=== PATIENT | male | born 1975 | race African-American/Black ===

== ENCOUNTER 2020-05-19 22:40 | Emergency (ER) | payer OTHER ==
[~2020-05-19] VITALS: Ht 177.8 cm; Wt 109.0 kg
[2020-05-19] MEDS ORDERED: NAP5EC MT (23:29)
[2020-05-19] MEDS ORDERED: KETOROLAC 30MG/ML VIAL IM ONE (23:30)
[2020-05-19 23:41] VITALS: BP 153/91
== END 2020-05-19 23:45 | disposition home or self-care (01) ==
LOC: ER 22:40
DX: S76.911A Strain of unspecified muscles, fascia and tendons at thigh level, right thigh, initial encounter (principal); W01.0XXA Fall on same level from slipping, tripping and stumbling without subsequent striking against object, initial encounter; Y93.89 Activity, other specified; Y92.89 Other specified places as the place of occurrence of the external cause
CPT/HCPCS: 96372; 99283; J1885

== ENCOUNTER 2020-07-02 00:01 | Emergency (ER) | payer OTHER ==
[~2020-07-02] VITALS: Ht 175.3 cm; Wt 108.0 kg
[~2020-07-02 00:01] MED LIST: NAP5EC MT
[2020-07-02 00:07] VITALS: BP 140/90
[2020-07-02] MEDS ORDERED: ERYT1OIN6 EACHEYE ×3 (00:30→00:31)
== END 2020-07-02 00:45 | disposition home or self-care (01) ==
LOC: ER 00:01
DX: H10.33 Unspecified acute conjunctivitis, bilateral (principal); R03.0 Elevated blood-pressure reading, without diagnosis of hypertension
CPT/HCPCS: 99283

== ENCOUNTER 2022-06-13 22:16 | Emergency (ER) | payer OTHER ==
[~2022-06-13] VITALS: Ht 175.3 cm; Wt 114.0 kg
[~2022-06-13 22:16] MED LIST changes: +ERYT1OIN6 EACHEYE
[2022-06-13 22:34] VITALS: BP 174/97
[2022-06-14 03:50] LABS: EOSINOPHILS % 4.2 % (0.0-5.0); HEMATOCRIT. 45.2 % (42.0-52.0); HEMOGLOBIN. 15.6 g/dL (14.0-18.0); LYMPHOCYTES % 26.3 % (20.0-50.0); MEAN CORPUSCULAR HEMOGLOBIN 30.5 pg (28.0-32.0); MEAN CORPUSCULAR VOLUME 88.5 fL (80.0-94.0); MEAN PLATELET VOLUME 8.6 fl (7.4-10.4); MONOCYTES % 8.8 % (2.0-8.0); NEUTROPHILS % 59.7 % (40.0-76.0); PLATELET 179 x1000/uL (130-400); RED BLOOD CELL COUNT 5.11 mill/uL (4.7-6.1)
[2022-06-14 04:05] LABS: CHLORIDE 108 mEq/L (98-107)
== END 2022-06-14 04:50 | disposition home or self-care (01) ==
LOC: ER 22:25
DX: R42 Dizziness and giddiness (principal)
CPT/HCPCS: 36415; 71045; 80053; 83880; 84484; 85025; 93005; 99285